=== PATIENT | female | born 1950 | race Caucasian/White ===

== ENCOUNTER 2018-02-26 18:30 | Inpatient (IN) ==
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
[2018-02-26] MEDS ORDERED: Morphine Inj 4 MG/ML Vial IV.PUSH PRN (23:31)
[2018-02-26] MEDS ORDERED: Promethazine 25 MG Supp RECTAL PRN (23:31)
[2018-02-26] MEDS ORDERED: Post-op Orders (for Pharmacy) OTHER ONE (23:31)
[2018-02-26] MEDS ORDERED: Bisacodyl 10 MG Supp RECTAL PRN (23:31)
[2018-02-26] MEDS ORDERED: Naloxone Inj 0.4 MG/ML Vial IV.PUSH PRN (23:31)
[2018-02-26] MEDS ORDERED: Sodium Chloride 0.9% 2 ML Flush PRN IV.FLUSH (23:45)
[2018-02-26] MEDS ORDERED: Sod Chloride 0.9% Inj 1,000 ML IV.CONT SCH (23:45)
[2018-02-27] MEDS ORDERED: Morphine Inj 4 MG/ML Vial IV.PUSH PRN (07:05)
[2018-02-27 07:45] LABS: Baso % (Auto) 0.7 % (0.0-2.0); Eos # (Auto) 0.4 th/mm3 (0.0-0.4); Eos % (Auto) 7.2 % (0.0-4.0); Hematocrit 36.2 % (35.0-46.0); Hemoglobin 12.2 gm/dL (11.6-15.3); Lymph # (Auto) 1.3 th/mm3 (1.0-4.8); Lymph % (Auto) 25.2 % (9.0-44.0); Mean Corpuscular HGB Conc 33.9 % (32.0-36.0); Mean Corpuscular Hemoglobin 34.3 pg (27.0-34.0); Mean Corpuscular Volume 101.2 fL (80.0-100.0); Mean Platelet Volume 7.5 fL (7.0-11.0); Mono # (Auto) 0.6 th/mm3 (0.0-0.9); Mono % (Auto) 11.8 % (0.0-8.0); Neut # (Auto) 2.8 th/mm3 (1.8-7.7); Neut % (Auto) 55.1 % (16.0-70.0); Platelet Count 240 th/mm3 (150-450); Red Blood Count 3.57 mil/mm3 (4.00-5.30); Red Cell Distribution Width 13.8 % (11.6-17.2); White Blood Count 5.1 th/mm3 (4.0-11.0)
[2018-02-27 08:31] LABS: Calcium 8.3 mg/dL (8.5-10.1); Potassium 3.6 meq/L (3.5-5.1)
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
[2018-02-27] MEDS: Lidocaine 5% Patch T-DERMAL SCH (09:28)
[2018-02-27] MEDS: Methocarbamol 500 MG Tablet PO SCH ×3 (09:31→21:00)
[2018-02-27] MEDS: Thyroid 60 MG Tablet PO SCH (09:31)
[2018-02-27] MEDS: Lisinopril 5 MG Tablet PO SCH (09:31)
[2018-02-27] MEDS: Famotidine 20 MG Tablet PO SCH ×2 (09:31→20:55)
[2018-02-27] MEDS: Senna/Docusate Sodium 8.6/50 MG Tablet PO SCH ×2 (09:31→20:55)
[2018-02-27] MEDS: Sodium Chloride 0.9% 2 ML Flush BID IV.FLUSH SCH ×2 (09:34→21:02)
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
[2018-02-27] MEDS: Enoxaparin Inj 30 MG/0.3 ML Syringe SQ SCH (20:55)
[2018-02-28] MEDS: Thyroid 60 MG Tablet PO SCH (05:31)
[2018-02-28] MEDS: Methocarbamol 500 MG Tablet PO SCH (05:31)
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
[2018-02-28 06:30] LABS: Baso % (Auto) 0.6 % (0.0-2.0); Eos # (Auto) 0.6 th/mm3 (0.0-0.4); Eos % (Auto) 9.9 % (0.0-4.0); Hematocrit 34.4 % (35.0-46.0); Hemoglobin 11.8 gm/dL (11.6-15.3); Lymph # (Auto) 1.4 th/mm3 (1.0-4.8); Lymph % (Auto) 25.3 % (9.0-44.0); Mean Corpuscular HGB Conc 34.3 % (32.0-36.0); Mean Corpuscular Hemoglobin 34.3 pg (27.0-34.0); Mean Corpuscular Volume 100.2 fL (80.0-100.0); Mean Platelet Volume 7.7 fL (7.0-11.0); Mono # (Auto) 0.6 th/mm3 (0.0-0.9); Mono % (Auto) 10.4 % (0.0-8.0); Neut % (Auto) 53.8 % (16.0-70.0); Platelet Count 211 th/mm3 (150-450); Red Blood Count 3.43 mil/mm3 (4.00-5.30); Red Cell Distribution Width 13.8 % (11.6-17.2); White Blood Count 5.6 th/mm3 (4.0-11.0)
[2018-02-28 06:48] LABS: Calcium 7.9 mg/dL (8.5-10.1); Potassium 3.8 meq/L (3.5-5.1)
--- NOTE | 2018-02-28 06:56 | P.DCO ---
- Physical Therapy Order: Evaluate and treat, Improve ambulation, Strength and gait training - Home Health Nursing Order: Medical education, Signs/symptoms of disease process, Medication education-adverse effect, Nursing assessment with vital signs - Case Management Consult Case Management Consult-Home Health: Yes - Certification I have seen patient Sharon Benítez on 02/28/18. My clinical findings support the need for the requested home health care services because: Limited mobility due to disease progression, Patient has SOB, Deconditioned with increased weakness, Limited ability to care for self, High risk of falls I certify that my clinical findings support that this patient is homebound because: Post-op weakness, Unsteady gait/balance, Unsafe to leave home unassisted, Unable to use public transportation
[2018-02-28] MEDS: Lidocaine 5% Patch T-DERMAL SCH (08:40)
[2018-02-28] MEDS: Senna/Docusate Sodium 8.6/50 MG Tablet PO SCH (08:43)
[2018-02-28] MEDS: Enoxaparin Inj 30 MG/0.3 ML Syringe SQ SCH (08:43)
[2018-02-28] MEDS: Sodium Chloride 0.9% 2 ML Flush BID IV.FLUSH SCH (08:43)
[2018-02-28] MEDS: Lisinopril 5 MG Tablet PO SCH (08:43)
[2018-02-28] MEDS: Famotidine 20 MG Tablet PO SCH (08:43)
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
== END 2018-02-28 12:47 | disposition home health service (06) ==
LOC: NEPC 18:30 → NEDA 19:54 → N07 02-27 00:34
PROVIDERS: ADMIT Surgery; ATTEND Surgery